=== PATIENT | male | born 1965 | race Caucasian/White ===

== ENCOUNTER 2016-08-18 09:10 | Emergency (ER) | payer BC ==
[~2016-08-18] VITALS: Ht 160 cm; Wt 65.0 kg
[2016-08-18 09:13] VITALS: Ht 160 cm; Wt 65.0 kg
--- NOTE | 2016-08-18 10:44 | RADRPT ---
PROCEDURE: XR Chest. CLINICAL INDICATION: Cough TECHNIQUE: Chest AP portable. COMPARISON: No comparison available. FINDINGS: The mediastinal structures are unremarkable. The heart is normal in size and configuration. The pu lmonary vascularity is normal. The lung boyle are unremarkable. No consolidation is identified. The pleural spaces are unremarkable. The axial skeleton is unremarkable. IMPRESSION: No active intrathoracic disease. RPTAT: HGDB .Oral Vincent MD, MD Date Time Electronically viewed and signed by .Oral Vincent MD, on 08/18/2016 10:44 .B/
[2016-08-18] MEDS ORDERED: AZIT250T94 PO (10:49)
[2016-08-18] MEDS ORDERED: NAPR-688 PO (10:49)
[2016-08-18] MEDS ORDERED: BENZ100C70 PO (10:49)
--- NOTE | 2016-08-18 11:03 | ERD ---
ER Documentation Chief Complaint Date/Time DATE: 08/18/16 TIME: 11:01 Chief Complaint FEVER,COUGH,CHEST WALL PAIN X 1 WEEK HPI This is a 51-year-old male presents to the ER with fever, cough, body pain, chills for the last week. Patient also complaining of a severe sore throat. He feels very fatigued. Patient states that every time he coughs he feels like his chest hurts. He denies any shortness of breath. Cough is productive and constant. Patient has been trying clel-ywn-wilhesr cough medication however has not helped. Patient did not get his flu shot this year. His was recently sick with same symptoms. ROS 12 point review of systems was done, all negative except per HPI. Medications Home Meds Active Scripts Benzonatate* (Tessalon Perle*) 100 Mg Capsule, 100 MG PO Q8H Y for COUGH for 3 Days, CAP Prov:TOSHA SEGOVIA 08/18/16 Naproxen* (Naproxen*) 500 Mg Tablet, 500 MG PO BID Y for PAIN for 3 Days, TAB Prov:TOSHA SEGOVIA 08/18/16 Azithromycin* (Zithromax*) 250 Mg Tablet, 250 MG PO .ZPACK DIRECTED, #6 TAB TAKE 500 MG (2 TABS) THE FIRST DAY THEN 250 MG (1 TAB) DAYS 2-5 Prov:TOSHA SEGOVIA 08/18/16 PMhx/Soc Medical and Surgical Hx: pt denies Medical Hx, pt denies Surgical Hx Physical Exam Vitals Vital Signs Date Time Temp Pulse Resp B/P Pulse Ox O2 Delivery O2 Flow Rate FiO2 08/18/16 09:13 98.7 75 18 155/85 98 Physical Exam GENERAL: The patient is well-developed, well-nourished, in no acute distress. NECK: Cervical spine is non tender with no step off. Supple, no nuchal rigidity HEENT: Atraumatic. Pupils equal, round and reactive to light. Extraocular muscles are grossly intact. Conjunctivae pink, no discharge. Bilateral tympanic membranes are clear with no evidence of erythema, effusion or dulling of the light reflex. Tonsilar erythema with no exudates or uvular deviation. Clear rhinorrhea. RESPIRATORY: Clear to auscultation bilaterally. There are no rales, wheezes or rhonchi. There is no inspiratory stridor or retractions. No flaring/retractions. HEART: Regular rate and rhythm. No murmurs, clicks, rubs or gallops. ABDOMEN: Soft, nontender, nondistended. Active bowel sounds in all 4 quadrants. No rebounding or guarding. EXTREMITIES: No clubbing or cyanosis. Full range of motion. Grossly neurovascularly intact. NEUROLOGIC: Alert and oriented. Cranial nerves II through XII are intact. SKIN: There is no rash. The skin is warm and dry. Procedures/MDM Differential diagnosis includes but is not limited to; Viral URI, allergic rhinitis, bronchitis, bronchiolitis, pertussis, croup, pneumonia. Patient will be treated for possible bronchitis with azithromycin secondary to duration and severity of symptoms. Clinical suspicion for pneumonia is low as child appears well, is not hypoxic or in any respiratory distress. Additionally, aicha physical examination is benign. Child is stable for outpatient follow up. Plan was discussed with parents they understand and agree. Child needs to follow up with PCP within 1-2 days, or return to ER if symptoms worsen. Departure Diagnosis: Primary Impression: Upper respiratory infection Condition: Stable Patient Instructions: Preventing Common Respiratory Infections Additional Instructions: Llame al doctor MAANA y markus yoel CESIA PARA DENTRO DE 1-2 SALZAAR.Dgale a la secretaria que nosotros le instruimos hacer esta cesia.Avise o llame si keyes condicin se empeora antes de la cesia. Regresa aqui si peor o no mejor. TOSHA SEGOVIA Aug 18, 2016 11:02
== END 2016-08-18 11:27 | disposition home or self-care (01) ==
LOC: FTE 09:10
DX: J06.9 Acute upper respiratory infection, unspecified (principal); R07.89 Other chest pain
CPT/HCPCS: 71010; 87400; 93005

== ENCOUNTER 2018-08-16 08:50 | Emergency (ER) | payer BC ==
[~2018-08-16] VITALS: Ht 167.6 cm; Wt 64.1 kg
[~2018-08-16 08:50] MED LIST: AZIT250T PO; BENZ-6 PO; NAPR-688 PO
[2018-08-16 08:54] VITALS: BP 164/85; PULSE 68; RESP 20; Ht 167.6 cm; Wt 64.1 kg
[2018-08-16] MEDS ORDERED: KETOROLAC 60 MG INJ IM STA (09:21)
[2018-08-16] MEDS ORDERED: IBUP-1542 PO (10:36)
--- NOTE | 2018-08-16 10:43 | ERD ---
ER Documentation Chief Complaint Chief Complaint Pain management for knee pain x 3 days HPI 53-year-old male presents with complaint of bilateral knee pain for the past month. States that the pain is on and off. He also states that he is has some bony deformities in the knees. Denies any treatments. Denies any history of trauma. History of type 2 diabetes per denies allergies. States that he is ambulatory. Denies saddle numbness. Denies medications. Denies surgeries. Denies alcohol, tobacco, drug use. Up to date on vaccines. ROS All systems reviewed and are negative except as per history of present illness. Medications Home Meds Active Scripts Ibuprofen* (Motrin*) 600 Mg Tab, 600 MG PO Q6 for pain, #30 TAB Prov:RITA WINTER 08/16/18 Benzonatate* (Tessalon Perle*) 100 Mg Capsule, 100 MG PO Q8H PRN for COUGH for 3 Days, CAP Prov:LUCA,TOSHA C 08/18/16 Naproxen* (Naproxen*) 500 Mg Tablet, 500 MG PO BID PRN for PAIN for 3 Days, TAB Prov:LUCA,TOSHA C 08/18/16 Azithromycin* (Zithromax*) 250 Mg Tablet, 250 MG PO .ZPACK DIRECTED, #6 TAB TAKE 500 MG (2 TABS) THE FIRST DAY THEN 250 MG (1 TAB) DAYS 2-5 Prov:LUCATOSHA C 08/18/16 Allergies Allergies: Coded Allergies: No Known Allergy (Unverified , 08/16/18) PMhx/Soc Hx Alcohol Use: No Hx Substance Use: No Hx Tobacco Use: No Smoking Status: Never smoker FmHx Family History: No diabetes, No coronary disease, No other Physical Exam Vitals Vital Signs Date Temp Pulse Resp B/P (MAP) Pulse Ox O2 O2 Flow FiO2 Time Delivery Rate 08/16/18 97.8 68 20 164/85 100 08:54 (111) Physical Exam Const: No acute distress Head: Atraumatic Eyes: Normal Conjunctiva ENT: Normal External Ears, Nose and Mouth. Neck: Full range of motion. No meningismus. Resp: Clear to auscultation bilaterally Cardio: Regular rate and rhythm, no murmurs Abd: Soft, non tender, non distended. Normal bowel sounds Skin: No petechiae or rashes Rectal: Rectal tone intact. Back: No midline or flank tenderness Ext: No cyanosis, or edema. 5 out of 5 strength in lower extremities. Distal sensation intact. Distal pulses intact. No saddle numbness. Neur: Awake and alert Psych: Normal Mood and Affect Result Diagram: 08/16/1831 Results 24 hrs Laboratory Tests Test 08/16/18 09:31 Creatinine 0.61 mg/dl Current Medications Medications Dose Sig/Clint Start Time Status Last (Trade) Ordered Route PRN Stop Time Admin Dose Reason Admin Ketorolac 60 mg ONCE STAT 08/16/18 DC 08/16/18 Tromethamine IM 09:21 09:28 (Toradol) 08/16/18 09:22 Procedures/MDM Patient's presentation is consistent with osteoarthritis. Patient was given Rx for ibuprofen and advised to follow-up with primary care. Low suspicion for fracture, cauda equina, compartment syndrome, or any other emergent condition. Patient discharged with strict ER precautions. Patient advised to follow up with PMD. All questions answered at discharge. Departure Diagnosis: Primary Impression: Osteoarthritis Osteoarthritis location: knee Osteoarthritis type: unspecified Laterality: bilateral Qualified Codes: M17.0 - Bilateral primary osteoarthritis of knee Condition: Stable Patient Instructions: What Is Osteoarthritis?, Osteoarthritis: Non-invasive Treatment Options, Osteoarthritis: Common Sites, Osteoarthritis: Coping with Pain, Osteoarthritis: Exercise, Osteoarthritis: Managing Pain, Osteoarthritis: Tips for Daily Living, Osteoarthritis: Injections or Surgery Referrals: [facility] YOU HAVE RECEIVED A MEDICAL SCREENING EXAM AND THE RESULTS INDICATE THAT YOU DO NOT HAVE A CONDITION THAT REQUIRES URGENT TREATMENT IN THE EMERGENCY DEPARTMENT. FURTHER EVALUATION AND TREATMENT OF YOUR CONDITION CAN WAIT UNTIL YOU ARE SEEN IN YOUR DOCTORS OFFICE WITHIN THE NEXT 1-2 DAYS. IT IS YOUR RESPONSIBILITY TO MAKE AN APPOINTMENT FOR FOLOW-UP CARE. IF YOU HAVE A PRIMARY DOCTOR --you should call your primary doctor and schedule an appointment IF YOU DO NOT HAVE A PRIMARY DOCTOR YOU CAN CALL OUR PHYSICIAN REFERRAL HOTLINE AT IF YOU CAN NOT AFFORD TO SEE A PHYSICIAN YOU CAN CHOSE FROM THE FOLLOWING [facility] [address] [facility] [address] [facility] [facility] [address] [facility] [address] [facility] [address] [facility]. [address] Additional Instructions: FOLLOW UP WITH YOUR PRIMARY CARE PHYSICIAN TOMORROW.Return to this facility if you are not improving as expected. RITA WINTER Aug 16, 2018 10:43
== END 2018-08-16 10:42 | disposition home or self-care (01) ==
LOC: FTE 08:50
DX: M17.0 Bilateral primary osteoarthritis of knee (principal); E11.9 Type 2 diabetes mellitus without complications
CPT/HCPCS: 36415; 82565; 96372; 99284; J1885

== ENCOUNTER 2019-02-06 19:54 | Inpatient (IN) | payer BC ==
[~2019-02-06] VITALS: Ht 165.1 cm; Wt 65.2 kg
[~2019-02-06 19:54] MED LIST changes: +ASPI-1163 PO; +EZET10TA32 PO; +IBUP-1542 PO; +LANT3I SC; +LOSA25TA2 PO; +METO-335 PO; +NOVO3I SC; +PRAV40TA76 PO; +TICA90TA PO
[2019-02-06 20:04] VITALS: Ht 165.1 cm; Wt 65.2 kg
[2019-02-06] MEDS ORDERED: morphine 4 MG/ML VIAL IV STA (20:15)
[2019-02-06] MEDS ORDERED: SOD CHLORIDE 0.9% 1,000 ML IV STA (20:15)
[2019-02-06] MEDS ORDERED: ASPIRIN 325 MG TAB PO STA (20:15)
[2019-02-06] MEDS ORDERED: NITROGLYCERIN 2% 1 GM OINT PKT TD STA (20:15)
[2019-02-06] MEDS ORDERED: ONDANSETRON 4 MG INJ IV STA (20:15)
[2019-02-06] MEDS ORDERED: HEPARIN 1000 UNITS/ML 10 ML INJ IV STA (20:28)
[2019-02-06] MEDS: SOD CHLORIDE 0.9% 1,000 ML IV SCH (20:31)
[2019-02-06] MEDS ORDERED: FENTAnyl 50 MCG/ML VIAL ONE (20:52)
[2019-02-06] MEDS ORDERED: IODIXANOL LOCM 100 ML BTL ONE (20:52)
[2019-02-06] MEDS ORDERED: HEPARIN 1000 UNITS/ML 10 ML INJ ONE (20:52)
[2019-02-06] MEDS ORDERED: LIDOCAINE 1% (MDV) 20 ML INJ ONE (20:52)
[2019-02-06] MEDS ORDERED: MIDAZOLAM 1 MG/ML 2 ML INJ ONE (20:52)
[2019-02-06] MEDS ORDERED: VERAPAMIL 5 MG INJ ONE (20:53)
[2019-02-06] MEDS ORDERED: SOD CHLORIDE 0.9% 500 ML ONE (20:53)
[2019-02-06] MEDS ORDERED: SOD CHLORIDE 0.9% 1,000 ML IV SCH (20:55)
[2019-02-06] MEDS ORDERED: ALBUTEROL 0.083% (NEB) 2.5 MG/3 ML AMP NEB PRN (21:00)
[2019-02-06] MEDS ORDERED: DOCUSATE SODIUM 100 MG CAP PO PRN (21:00)
[2019-02-06] MEDS ORDERED: OXYCODONE/ACETAMINOPHEN (5/325) TAB PO PRN (21:00)
[2019-02-06] MEDS ORDERED: IPRATROPIUM (NEB) 0.5 MG/2.5 ML AMP NEB PRN (21:00)
[2019-02-06] MEDS ORDERED: ACETAMINOPHEN 650MG/20.3ML CUP PO PRN (21:00)
[2019-02-06] MEDS ORDERED: ENALAPRILAT 1.25 MG INJ IV PRN (21:00)
[2019-02-06] MEDS ORDERED: BISACODYL (EC) 5 MG TAB PO PRN (21:00)
[2019-02-06] MEDS ORDERED: NITROGLYCERIN (SL) 0.4 MG TAB SL PRN (21:00)
[2019-02-06] MEDS ORDERED: morphine 2 MG INJ IV PRN ×2 (21:00)
[2019-02-06] MEDS ORDERED: ONDANSETRON 4 MG INJ IV PRN (21:00)
[2019-02-06] MEDS: TICAGRELOR 90 MG TABLET PO SCH (21:00)
[2019-02-06] MEDS ORDERED: ACETAMINOPHEN 325 MG TAB PO PRN (21:00)
[2019-02-06] MEDS ORDERED: NITROGLYCERIN (IC) 100 MCG/ML INJ ONE (21:51)
[2019-02-06] MEDS ORDERED: TICAGRELOR 90 MG TABLET ONE (21:52)
[2019-02-06] MEDS ORDERED: METOPROLOL 5 MG INJ ONE (21:55)
[2019-02-07] VITALS (46 sets, daily range): BP systolic 112–151; BP diastolic 76–92; PULSE 68–92; RESP 11–20
[2019-02-07] MEDS ORDERED: GLUCAGON 1 MG INJ IM PRN (01:00)
[2019-02-07] MEDS ORDERED: GLUCOSE GEL 15 GRAM TUBE BUCCAL PRN (01:00)
[2019-02-07] MEDS ORDERED: DEXTROSE 50% 50 ML SYRINGE IV PRN ×2 (01:00)
[2019-02-07] MEDS ORDERED: GLUCOSE GEL 15 GRAM TUBE PO PRN ×2 (01:00)
[2019-02-07] MEDS: INSULIN ASPART [NOVOLOG] 3 ML PEN SC SCH ×6 (01:00→22:01)
[2019-02-07] MEDS ORDERED: ACCU-CHEK XX SCH (02:00)
[2019-02-07] MEDS: PANTOPRAZOLE (EC) 40 MG TAB PO SCH (05:03)
[2019-02-07] MEDS: SOD CHLORIDE 0.9% 1,000 ML IV SCH ×2 (07:22→23:50)
[2019-02-07] MEDS: ASPIRIN (EC) 81 MG TAB PO SCH (08:30)
[2019-02-07] MEDS: TICAGRELOR 90 MG TABLET PO SCH ×2 (08:31→22:02)
[2019-02-07] MEDS: ACETYLCYSTEINE 600 MG CAP PO SCH ×2 (09:00→21:51)
[2019-02-07] MEDS: LOSARTAN 25 MG TAB PO SCH (09:10)
[2019-02-07] MEDS: EZETIMIBE 10 MG TAB PO SCH (09:10)
[2019-02-07] MEDS: METOPROLOL (XL) 25 MG TAB PO SCH (09:10)
[2019-02-07] MEDS: ACCU-CHEK XX SCH ×2 (14:19→20:00)
[2019-02-07] MEDS ORDERED: INSULIN GLARGINE [LANTus] (100 UNITS/ML) SYG SC SCH (20:00)
[2019-02-07] MEDS ORDERED: ATORVASTATIN 80 MG TAB PO SCH (21:00)
[2019-02-08] VITALS: BP 130/81; PULSE 80; RESP 18
[2019-02-08] MEDS ORDERED: ACCU-CHEK XX SCH (02:00)
[2019-02-08 04:00] VITALS: BP 136/85; PULSE 71; RESP 17
[2019-02-08] MEDS: PANTOPRAZOLE (EC) 40 MG TAB PO SCH (05:36)
[2019-02-08 07:22] VITALS: BP 130/75; PULSE 78; RESP 20
[2019-02-08] MEDS: INSULIN ASPART [NOVOLOG] 3 ML PEN SC SCH ×2 (07:33→11:47)
[2019-02-08] MEDS: EZETIMIBE 10 MG TAB PO SCH (08:58)
[2019-02-08] MEDS: LOSARTAN 25 MG TAB PO SCH (08:59)
[2019-02-08] MEDS: ACETYLCYSTEINE 600 MG CAP PO SCH (08:59)
[2019-02-08] MEDS: ASPIRIN (EC) 81 MG TAB PO SCH (09:00)
[2019-02-08] MEDS: METOPROLOL (XL) 25 MG TAB PO SCH (09:00)
[2019-02-08] MEDS: TICAGRELOR 90 MG TABLET PO SCH (09:04)
[2019-02-08] MEDS: ACCU-CHEK XX SCH ×2 (09:58→14:13)
[2019-02-08 11:01] VITALS: BP 116/73; PULSE 73; RESP 20
[2019-02-08] MEDS: SOD CHLORIDE 0.9% 1,000 ML IV SCH (11:43)
[2019-02-08 15:29] VITALS: BP 137/69; PULSE 68; RESP 20
== END 2019-02-08 16:40 | disposition home health service (06) | DRG 247 ==
LOC: E/R 19:54 → ICU 20:31 → 6WM 02-07 17:05
PROVIDERS: ADMIT Family Medicine; ATTEND Family Medicine
PROC: B2101ZZ Fluoroscopy of Single Coronary Artery using Low Osmolar Contrast (ICD-10-PCS; 2019-02-06)
PROC: 027035Z Dilation of Coronary Artery, One Artery with Two Drug-eluting Intraluminal Devices, Percutaneous Approach (ICD-10-PCS; principal; 2019-02-06 22:00)
PROC: 4A023N7 Measurement of Cardiac Sampling and Pressure, Left Heart, Percutaneous Approach (ICD-10-PCS; 2019-02-06 22:00)
DX: I21.3 ST elevation (STEMI) myocardial infarction of unspecified site (principal); I25.10 Atherosclerotic heart disease of native coronary artery without angina pectoris; I44.7 Left bundle-branch block, unspecified; I10 Essential (primary) hypertension; R00.0 Tachycardia, unspecified; E11.9 Type 2 diabetes mellitus without complications; E78.5 Hyperlipidemia, unspecified; Z87.891 Personal history of nicotine dependence
CPT/HCPCS: 36415; 71045; 80048; 80053; 80061; 82306; 82550; 82553; 82962; 83036; 84443; 84484; 85025; 85610; 85730; 87081; 93005; 93306; 93458; 96374; 96375; C1725; C1874; C1887; C9606; J1644; J1815; J2250; J2270; J2405; J3010; J7030; J7040; Q9967